=== PATIENT | female | born 1960 | race Caucasian/White ===

== ENCOUNTER 2018-05-28 16:11 | Emergency (ER) | payer OTHER ==
[2018-05-28] MEDS ORDERED: NS 1,000 ML IV ONE (18:11)
[2018-05-28 18:49] LABS: PLATELET COUNT 178 10^3/uL (150-400)
--- NOTE | 2018-05-28 20:43 | EDPHY ---
H & P Stated Complaint: Dx w/UTI this morning,started antibx; not any better Time Seen by Provider: 05/28/18 17:58 HPI/ROS: Chief complaint: Urinary tract infection, possibly worsening History of present illness: This is a 58-year-old female who presents to the emergency department for a urinary tract infection that she is concerned may be worsening. 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 Over the last few days she developed tactile fevers and chills and body aches. Those symptoms have resolved. However over that time she developed some mild urinary incontinence and irritation with urination. She went to an urgent care and was diagnosed with a UTI. She was started on Augmentin. She states the above symptoms have mildly improved since starting the Augmentin. However, she has developed left flank pain. She is concerned this could be from worsening symptoms although again her nephrectomy was on the left side. She denies fevers. She denies nausea, vomiting or diarrhea. She denies abdominal pain. She denies abnormal vaginal discomfort or discharge. Review of systems: A 10 point review of systems was obtained and other than described above was negative - Personal History Current Tetanus Diphtheria and Acellular Pertussis (TDAP): Yes - Medical/Surgical History Other PMH: L nephrectomy - Social History Smoking Status: Never smoked - Physical Exam Exam: General Appearance: Alert, nontoxic. Eyes: Pupils equal and round no pallor or injection. ENT, Mouth: Mucous membranes moist. Respiratory: There are no retractions, lungs are clear to auscultation. Cardiovascular: Regular rate and rhythm. Gastrointestinal: Abdomen is soft and non tender, no masses, bowel sounds normal. Genitourinary: No CVA tenderness Neurological: Alert and oriented x4. Strength and sensation intact and symmetrical. Skin: Warm and dry, no rashes. Musculoskeletal: Extremities are symmetrical, full range of motion. She is ambulating well. Psychiatric: Patient is oriented X 3, there is no agitation. Constitutional: Initial Vital Signs Temperature (C) 36.7 C 05/28/18 16:13 Heart Rate 65 05/28/18 16:13 Respiratory Rate 16 05/28/18 16:13 Blood Pressure 136/83 H 05/28/18 16:13 O2 Sat (%) 97 05/28/18 16:13 O2 Delivery Mode Room Air Allergies/Adverse Reactions: ciprofloxacin [From Cipro] Allergy (Mild, Verified 05/28/18 16:17) Rash Home Medications: Medication Instructions Recorded Amox Tr/Potassium Clavulanate 1 each PO 05/28/18 [Augmentin 1000MG ER Tablet (*)] buPROPion [Wellbutrin 75mg (*)] 75 mg PO 05/28/18 Medical Decision Making - Diagnostics Imaging Results: Imaging Impressions Abdomen/Pelvis CT 05/28/18 19:42 Impression: 1. No definite etiology for the patient's pain. 2. Constipation. 3. Mild right ureteral fullness, which could be related to bladder distention, with no renal or ureteral stone identified. 4. Additional findings, as above. Findings discussed with Alvaro Peace PA-C, on May 28, 2018 at 2018. Attention: This CT examination is specifically designed to evaluate patients who are clinically suspected of having acute obstructive uropathy. This examination does not use radiographic contrast and provides only a limited evaluation of the abdomen, pelvis, and retroperitoneum. If there is further clinical suspicion for pathological conditions other than obstructive uropathy, a complete CT evaluation of the abdomen and pelvis utilizing intravenous and enteric contrast should be considered. Imaging: Discussed imaging studies w/ welt stitch cleaner Radiologist ED Course/Re-evaluation: Patient is discussed with my secondary supervising physician Dr. Kvng Hanson. Patient presents to the emergency department for urinary symptoms and left flank pain. She is nontoxic. Vital signs are stable. Lab studies largely unremarkable, she states her creatinine has recently been at 1.5 and 1.2 today is an improvement. Urinalysis does show evidence of UTI. Urine cultures obtained. The CT scan is obtained to ensure no other pathology involving the urinary system and is negative. She has been IV hydrated. She will be discharged home. Home care is discussed. She is to continue taking the Augmentin. She is instructed if symptoms worsen or new symptoms develop she should return immediately to the emergency department. She is otherwise to follow up with her primary care doctor. Differential Diagnosis: Included but not limited to UTI, pyelonephritis, nephrolithiasis, abdominal pathology with radiation of symptoms, musculoskeletal pain - Data Points Laboratory Results: Laboratory Results 05/28/18 18:35 05/28/18 18:35 05/28/18 05/28/18 05/28/18 18:35 18:35 18:35 WBC 5.46 10^3/uL 10^3/uL (3.80-9.50) RBC 4.24 10^6/uL 10^6/uL (4.18-5.33) Hgb 11.8 g/dL L g/dL (12.6-16.3) Hct 36.1 % L % (38.0-47.0) MCV 85.1 fL fL (81.5-99.8) MCH 27.8 pg L pg (27.9-34.1) MCHC 32.7 g/dL g/dL (32.4-36.7) RDW 13.2 % % (11.5-15.2) Plt Count 178 10^3/uL 10^3/uL (150-400) MPV 9.6 fL fL (8.7-11.7) Neut % (Auto) 55.3 % % (39.3-74.2) Lymph % (Auto) 31.9 % % (15.0-45.0) Bowman % (Auto) 10.4 % % (4.5-13.0) Eos % (Auto) 2.2 % % (0.6-7.6) Baso % (Auto) 0.0 % L % (0.3-1.7) Nucleat RBC Rel Count 0.0 % % (0.0-0.2) Absolute Neuts (auto) 3.02 10^3/uL 10^3/uL (1.70-6.50) Absolute Lymphs (auto) 1.74 10^3/uL 10^3/uL (1.00-3.00) Absolute Monos (auto) 0.57 10^3/uL 10^3/uL (0.30-0.80) Absolute Eos (auto) 0.12 10^3/uL 10^3/uL (0.03-0.40) Absolute Basos (auto) 0.00 10^3/uL L 10^3/uL (0.02-0.10) Absolute Nucleated RBC 0.00 10^3/uL 10^3/uL (0-0.01) Immature Gran % 0.2 % % (0.0-1.1) Immature Gran # 0.01 10^3/uL 10^3/uL (0.00-0.10) Sodium 134 mEq/L L mEq/L (135-145) Potassium 3.9 mEq/L mEq/L (3.5-5.2) Chloride 104 mEq/L mEq/L (97-110) Carbon Dioxide 22 mEq/l mEq/l (22-31) Anion Gap 8 mEq/L mEq/L (6-14) BUN 18 mg/dL mg/dL (7-23) Creatinine 1.2 mg/dL H mg/dL (0.6-1.0) Estimated GFR 46 Glucose 104 mg/dL H mg/dL (70-100) Calcium 8.9 mg/dL mg/dL (8.5-10.4) Total Bilirubin 0.3 mg/dL mg/dL (0.1-1.4) Conjugated Bilirubin 0.2 mg/dL mg/dL (0.0-0.5) Unconjugated Bilirubin 0.1 mg/dL mg/dL (0.0-1.1) AST 30 IU/L IU/L (14-46) ALT 39 IU/L IU/L (9-52) Alkaline Phosphatase 55 IU/L IU/L (38-126) Total Protein 6.9 g/dL g/dL (6.3-8.2) Albumin 4.2 g/dL g/dL (3.5-5.0) Lipase 138 IU/L IU/L (23-300) Urine Color Urine Appearance Urine pH Ur Specific [place] Urine Protein Urine Ketones Urine Blood Urine Nitrate Urine Bilirubin Urine Urobilinogen Ur Leukocyte Esterase Urine RBC Urine WBC Ur Epithelial Cells Urine Bacteria Urine Mucus Urine Glucose 05/28/18 18:15 WBC RBC Hgb Hct MCV MCH MCHC RDW Plt Count MPV Neut % (Auto) Lymph % (Auto) Bowman % (Auto) Eos % (Auto) Baso % (Auto) Nucleat RBC Rel Count Absolute Neuts (auto) Absolute Lymphs (auto) Absolute Monos (auto) Absolute Eos (auto) Absolute Basos (auto) Absolute Nucleated RBC Immature Gran % Immature Gran # Sodium Potassium Chloride Carbon Dioxide Anion Gap BUN Creatinine Estimated GFR Glucose Calcium Total Bilirubin Conjugated Bilirubin Unconjugated Bilirubin AST ALT Alkaline Phosphatase Total Protein Albumin Lipase Urine Color PALE YELLOW Urine Appearance CLEAR Urine pH 6.0 (5.0-7.5) Ur Specific [place] 1.003 (1.002-1.030) Urine Protein NEGATIVE (NEGATIVE) Urine Ketones NEGATIVE (NEGATIVE) Urine Blood 1+ H (NEGATIVE) Urine Nitrate NEGATIVE (NEGATIVE) Urine Bilirubin NEGATIVE (NEGATIVE) Urine Urobilinogen NEGATIVE EU EU (0.2-1.0) Ur Leukocyte Esterase TRACE H (NEGATIVE) Urine RBC NONE SEEN /hpf /hpf (0-3) Urine WBC 1-3 /hpf /hpf (0-3) Ur Epithelial Cells NONE SEEN /lpf /lpf (NONE-1+) Urine Bacteria TRACE /hpf H /hpf (NONE SEEN) Urine Mucus TRACE /lpf /lpf (NONE-1+) Urine Glucose NEGATIVE (NEGATIVE) Medications Given: Discontinued Medications Sodium Chloride (Ns) 1,000 mls @ 0 mls/hr IV EDNOW ONE; Wide Open PRN Reason: Protocol Stop: 05/28/18 18:12 Last Admin: 05/28/18 18:29 Dose: 1,000 mls Departure - Departure Disposition: Home, Routine, Self-Care Clinical Impression: Urinary tract infection Qualifiers: Urinary tract infection type: site unspecified Hematuria presence: with hematuria Qualified Code(s): N39.0 - Urinary tract infection, site not specified ; R31.9 - Hematuria, unspecified; R31.9 - Hematuria, unspecified Condition: Good Instructions: Urinary Tract Infection in Women (ED) Additional Instructions: Follow-up with your primary care doctor next week for continued evaluation and care Continue to take the Augmentin as prescribed until finished even feeling better Drink plenty of fluids to stay hydrated If symptoms worsen or new symptoms develop return to the emergency room for recheck Please note a urine culture has been ordered. Referrals: IGNACIO CARPENTER MD [Other] - As per Instructions
[2018-05-29 01:37] VITALS: BP 132/76
== END 2018-05-28 20:51 | disposition home or self-care (01) ==
DX: N39.0 Urinary tract infection, site not specified (principal); R31.9 Hematuria, unspecified; E86.9 Volume depletion, unspecified; Z90.5 Acquired absence of kidney